=== PATIENT | female | born 1980 | race Caucasian/White ===

== ENCOUNTER 2018-06-27 12:32 | Emergency (ER) | payer BC, SELFPAY ==
[2018-06-27 12:39] VITALS: BP 133/93; PULSE 82; RESP 15; TEMP 36.8; O2SAT 99; BMI 21.4
--- NOTE | 2018-06-27 13:06 | DI.RAD.S_ITS ---
PROCEDURE: XR CHEST 2V INDICATIONS: SHORTNESS OF BREATH TECHNIQUE: 2 views of the chest were acquired. COMPARISON: [facility], CHEST 2 VIEW, 09/07/2017, 16:35. [facility], CHEST 2 VIEW, 06/11/2016, 0:55. FINDINGS: Surgical changes and devices: None. Lungs and pleura: No pleural effusions or pneumothorax. Lungs are clear. Mediastinum: Mediastinal contours are normal. Heart size is normal. Bones and chest wall: No suspicious bony abnormalities. Soft tissues appear unremarkable. IMPRESSION: Normal for age, source of current symptoms is not seen. Dictated by: Samir Dunn M.D. on 06/27/2018 at 13:35 Approved by: Samir Dunn M.D. on 06/27/2018 at 13:35
[2018-06-27 13:15] VITALS: PULSE 70; RESP 17; O2SAT 98
[2018-06-27] MEDS: ALBUTEROL/IPRATROPIUM 3 ML AMPUL INH (13:15)
[2018-06-27] MEDS: SODIUM CHLORIDE 0.9% 1,000 ML 1000 ML IV (13:38)
[2018-06-27 13:42] LABS: Add Manual Diff / Slide Review NO; Basophils Percent Auto 1.2 % (0-2); Eosinophils Percent Auto 1.6 % (2-4); Hematocrit 41.7 % (36-46); Hemoglobin 14.3 g/dL (12.0-16.0); Lymphocytes Percent Auto 39.6 % (25-40); Mean Corpuscular HGB Conc 34.3 % (30-36); Mean Corpuscular Hemoglobin 29.8 PG (26-34); Mean Corpuscular Volume 86.8 fL (80-100); Neutrophils Absolute Auto 3400 /uL (3000-5900); Neutrophils Percent Auto 48.6 % (50-75); Platelet Count 302 X10^3/uL (150-400); Red Cell Distribution Width 13.3 % (11.6-14.8)
--- NOTE | 2018-06-27 13:46 | ED_ITS ---
HPI - Weakness General Chief complaint: Weakness Stated complaint: states extreme fatigue, nausea, hands and feet num Time Seen by Provider: 06/27/18 12:55 Source: patient Mode of arrival: ambulatory Limitations: no limitations History of Present Illness HPI Narrative: 37-year-old female is a daily smoker and presents with multiple complaints over the past week. She has had runny nose and sore throat as well as cough with wheezing. She has had nausea and decreased appetite and therefore has been eating and drinking less. She has had gradually worsening headaches and now feels fatigued. She feels dizzy when standing and improves with rest. She denies any fever but has had chills. She has been exposed to multiple sick people though nobody with symptoms as bad as her. She recently moved across town and has been under significant stress MD Complaint: generalized weakness Onset (ago): day(s) Duration: constant Location: generalized Migration: none Severity: moderate Quality: tingling Relieving factors: none Exacerbating factors: none Associated symptoms: fever/chills, headaches, loss of appetite, nausea/vomiting and shortness of breath Related Data Home Medications Medication Instructions Recorded Confirmed bupropion HCl [Wellbutrin SR] 150 mg PO BID #0 09/06/17 tizanidine [Zanaflex] 2 mg PO TID PRN #0 09/06/17 albuterol sulfate [Ventolin HFA] #0 09/07/17 PNV,calcium [id number] acid 1 tab PO DAILY 06/27/18 06/27/18 [PrePlus] albuterol sulfate 1 dose INHALATION DIRECTED 06/27/18 06/27/18 buspirone 06/27/18 gabapentin 06/27/18 sertraline 50 mg PO DAILY 06/27/18 06/27/18 varenicline [Chantix Continuing 06/27/18 Month Box] Previous Rx's Medication Instructions Recorded metronidazole [Metrogel Vaginal] 1 appl VAGINAL HS #70 gm 10/22/17 omeprazole 20 mg PO QDAY@0600 #30 cap 12/27/17 letrozole [Femara] 2.5 mg PO QDAY #5 tab 12/28/17 Allergies Allergy/AdvReac Type Severity Reaction Status Date / Time latex [LATEX] Allergy Unknown Verified 06/27/18 12:39 Review of Systems Review of Systems All systems reviewed & are unremarkable except as noted in HPI and below Constitutional Reports chills, Reports fever(s), Denies lethargy and Reports weakness Eyes Denies change in vision, Denies eye discharge, Denies irritation and Denies loss of vision ENT Ears, Nose, Mouth, and Throat: Denies change in voice, Denies neck pain and Denies sore throat Cardiovascular Denies chest pain, Denies irregular heart rhythm, Denies lightheadedness, Denies palpitations, Denies dyspnea, Denies dyspnea on exertion and Denies orthopnea Respiratory Denies cough, Denies dyspnea, Denies dyspnea on exertion and Denies wheezing Gastrointestinal Gastrointestinal: Denies abdominal pain, Denies change in bowel habits, Denies diarrhea, Denies nausea and Denies vomiting Genitourinary Denies hematuria, Denies flank pain, Denies urinary incontinence and Denies urinary urgency Musculoskeletal Denies neck pain Integumentary/Breasts Denies pruritus, Denies erythema, Denies rash and Denies wounds Neurologic Denies confusion, Denies loss of vision and Reports weakness Psychiatric Denies anxiety, Denies confusion, Denies depression, Denies homicidal ideation and Denies suicidal ideation Endocrine Denies palpitations Hematologic/Lymphatic Denies easy bruising Allergic/Immunologic Denies wheezing [facility] Social History Smoking Status: Current every day smoker Exam Narrative Exam Narrative: GENERAL: This is a well-nourished, well-developed patient, in mild distress. tearful and anxious HEAD: Atraumatic. Normocephalic. No temporal or scalp tenderness. EYES: Pupils equal round and reactive. Extraocular motions intact. No scleral icterus. No injection or drainage. ENT: Nose without bleeding, purulent drainage or septal hematoma. Throat without erythema, tonsillar hypertrophy or exudate. Uvula midline. Airway patent. NECK: Trachea midline. No JVD or lymphadenopathy. Supple, nontender, no meningeal signs. CARDIOVASCULAR: Regular rate and rhythm without murmurs, gallops, or rubs. RESPIRATORY: mild expiratory wheeze bilaterally. No rales or rhonchi GASTROINTESTINAL: Abdomen soft, non-tender, nondistended. No hepato-splenomegaly , or palpable masses. No guarding. EXTREMITIES: No clubbing, cyanosis, or edema. No joint tenderness, effusion, or edema noted. BACK: Nontender without deformity or crepitance. No flank tenderness. NEURO: AOx3. SKIN: No rash or erythema. Initial Vital Signs Initial Vital Signs: Vital Signs Temperature 98.2 F 06/27/18 12:39 Pulse Rate 82 06/27/18 12:39 Respiratory Rate 15 06/27/18 12:39 Blood Pressure 133/93 H 06/27/18 12:39 Pulse Oximetry 99 06/27/18 12:39 Course Orders Ordered: ED Orders 06/27/18 13:06 XR chest 2V Stat 06/27/18 13:36 Basic Metabolic Panel Stat Complete Blood Count AUTO DIFF Stat Discontinued Medications Albuterol/Ipratropium (Duoneb) 3 ml INH NOW ONE Stop: 06/27/18 13:06 Last Admin: 06/27/18 13:15 Dose: 3 ml Sodium Chloride (Normal Saline 0.9%) 1,000 mls @ 1,000 mls/hr IV BOLUS ONE Stop: 06/27/18 14:04 Last Infusion: 06/27/18 15:17 Dose: 0 mls/hr Admin: 06/27/18 13:38 Dose: 1,000 mls/hr Ketorolac Tromethamine (Toradol) 15 mg IV NOW ONE Stop: 06/27/18 13:06 Last Admin: 06/27/18 13:48 Dose: 15 mg Metoclopramide HCl (Reglan) 10 mg IV NOW ONE Stop: 06/27/18 13:06 Last Admin: 06/27/18 13:48 Dose: 10 mg Reevaluation(s) Reevaluation #1: patient is feeling notable improvement in both headache and respiratory problems after above-stated therapies. She does not feel dizzy or lightheaded at this point time either Vital Signs - 8 hr 06/27/18 12:39 06/27/18 13:15 06/27/18 14:34 Temperature 98.2 F Pulse Rate 82 70 61 Respiratory Rate 15 17 15 Blood Pressure 133/93 H Blood Pressure [Right Arm] 103/65 Pulse Oximetry 99 98 96 06/27/18 15:17 Temperature Pulse Rate 62 Respiratory Rate 13 Blood Pressure 102/66 Blood Pressure [Right Arm] Pulse Oximetry 100 MDM - Weakness Lab Data Result diagrams: 06/27/18 13:36 06/27/18 13:36 Lab Results 06/27/18 06/27/18 Range/Units 13:36 13:36 WBC 7.0 (4.5-11.0) X10^3/uL RBC 4.80 (4.0-5.2) X10^6/uL Hgb 14.3 (12.0-16.0) g/dL Hct 41.7 (36-46) % MCV 86.8 (80-100) fL MCH 29.8 (26-34) PG MCHC 34.3 (30-36) % RDW 13.3 (11.6-14.8) % Plt Count 302 (150-400) X10^3/uL Neut % (Auto) 48.6 L (50-75) % Lymph % (Auto) 39.6 (25-40) % [place] % (Auto) 9.0 (3-14) % Eos % (Auto) 1.6 L (2-4) % Baso % (Auto) 1.2 (0-2) % Neut # (Auto) 3400 (6384-0468) /uL Sodium 144 (137-145) mmol/L Potassium 4.0 (3.4-5.1) mmol/L Chloride 106 (98-107) mmol/L Carbon Dioxide 24 (22-32) mmol/L BUN 10 (7-17) mg/dL Creatinine 0.60 (0.52-1.04) mg/dL Estimated GFR > 60.0 (>60) mL/min BUN/Creatinine Ratio 16.7 (6-22) Glucose 92 (70-100) mg/dL Calcium 10.0 (8.4-10.2) mg/dL Point of Care Testing Test Results Negative Urine Dip Bedside Urine Glucose Negative Bedside Urine Bilirubin - Negative Bedside Urine Ketone - Negative Urine Specific [place] 1.010 Bedside Urine Occult Blood - Negative Bedside Urine pH 7.0 Bedside Urine Protein - Negative Bedside Urine Urobilinogen - Negative Bedside Urine Nitrite - Negative Bedside Urine Leukocytes - Negative Esterase Discharge Plan Departure Patient Disposition: Home Clinical Impression: Bronchitis, Headache, Acute dehydration Discharge Date/Time: 06/27/18 15:18 Interventions: ED Discharge Assessment Last Done: 06/27/18 15:17 Prescriptions: No Action bupropion HCl [Wellbutrin SR] 150 MG tablet extended release 12 hr 150 mg PO BID Qty: 0 RF: 0 tizanidine [Zanaflex] 2 MG capsule 2 mg PO TID PRNQty: 0 RF: 0 albuterol sulfate [Ventolin HFA] 90 MCG/PUFF HFA aerosol inhaler Qty: 0 RF: 0 metronidazole [Metrogel Vaginal] 0.75 % gel 1 appl Vaginal HS Qty: 70 RF: 0 omeprazole 20 mg capsule,delayed release(DR/EC) 20 mg PO QDAY@0600 Qty: 30 RF: 6 letrozole [Femara] 2.5 mg tablet 2.5 mg PO QDAY Qty: 5 RF: 3 buspirone 5 mg tablet RF: 0 albuterol sulfate 2.5 mg /3 mL (0.083 %) solution for nebulization 1 dose Inhalation DIRECTED RF: 0 gabapentin 100 mg capsule RF: 0 sertraline 50 mg tablet 50 mg PO DAILY RF: 0 varenicline [Chantix Continuing Month Box] 1 mg tablet RF: 0 PNV,calcium [id number] acid [PrePlus] 27 mg iron- 1 mg tablet 1 tab PO DAILY RF: 0 Referrals: Brenda St PA-C [Primary Care Provider] - Stand Alone Forms: Work/School Restrictions
[2018-06-27] MEDS: METOCLOPRAMIDE 10 MG/2 ML INJ IV (13:48)
[2018-06-27] MEDS: KETOROLAC 60 MG/2 ML VIAL 15 MG IV (13:48)
[2018-06-27 13:52] LABS: BUN Creatinine Ratio 16.7 (6-22); Blood Urea Nitrogen 10 mg/dL (7-17); Carbon Dioxide 24 mmol/L (22-32); Chloride 106 mmol/L (98-107); Estimated Glomerular Filt Rate > 60.0 mL/min (>60); Glucose 92 mg/dL (70-100); HEMOLYSIS 19 (0-50); Sodium 144 mmol/L (137-145)
[2018-06-27 14:34] VITALS: BP 103/65; PULSE 61; RESP 15; O2SAT 96
[2018-06-27 15:17] VITALS: BP 102/66; PULSE 62; RESP 13; O2SAT 100
== END 2018-06-27 15:18 | disposition home or self-care (01) ==
PROVIDERS: Emergency Provider Emergency Medicine; Family Provider Physician Assistant; PCP Physician Assistant
DX: J40 Bronchitis, not specified as acute or chronic (principal); E86.0 Dehydration; R51 Headache
CPT/HCPCS: 36591; 71046; 80048; 81003; 81025; 85025; 94640; 96361; 96374; 96375; 99283; 99284; J1885; J2765

== ENCOUNTER 2019-01-19 13:08 | Emergency (ER) | payer BC, SELFPAY ==
--- NOTE | 2019-01-19 13:09 | ED.ABDPAIN ---
HPI - Abdominal Pain <Annamaria Martel PA-C - Last Filed: 01/19/19 15:33> General Chief Complaint: Abdominal Pain Stated Complaint: ABD PAIN IN LOWER RIGHT Time Seen by Provider: 01/19/19 13:09 Source: patient Mode of arrival: ambulatory Limitations: no limitations History of Present Illness HPI narrative: This 38-year-old female comes to ED secondary to onset of right lower quadrant pain a few hours ago. She states that the pain is constant, got a little bit better with warm shower, minimally worse with movement or trying to straighten up. She states that she has had severe nausea with this but has not had vomiting. She states she has some heartburn sensation around her mid abdomen. She states that she did have 1 episode of dysuria and has had some urinary frequency for the last few days, a little bit of urgency today. No hematuria. She states that she had a normal bowel movement yesterday, none today. She states that she does not have any chest pain, dyspnea, extremity pain or swelling. She denies any rash or known exposures. She states that she felt some chills and sweats with onset of pain but has not had any fever at home and was feeling well yesterday. She states that she felt like she had some gas and bloating sensation earlier prior to onset of pain. Related Data Home Medications Medication Instructions Recorded Confirmed bupropion HCl [Wellbutrin SR] 150 mg PO BID #0 09/06/17 tizanidine [Zanaflex] 2 mg PO TID PRN #0 09/06/17 albuterol sulfate [Ventolin HFA] #0 09/07/17 PNV,calcium [id number] acid 1 tab PO DAILY 06/27/18 06/27/18 [PrePlus] albuterol sulfate 1 dose INHALATION DIRECTED 06/27/18 06/27/18 buspirone 06/27/18 gabapentin 06/27/18 sertraline 50 mg PO DAILY 06/27/18 06/27/18 varenicline [Chantix Continuing 06/27/18 Month Box] Previous Rx's Medication Instructions Recorded metronidazole [Metrogel Vaginal] 1 appl VAGINAL HS #70 gm 10/22/17 omeprazole 20 mg PO QDAY@0600 #30 cap 12/27/17 letrozole [Femara] 2.5 mg PO QDAY #5 tab 05/15/18 prednisone 40 mg PO DAILY #10 tab 01/19/19 tramadol 50 mg PO Q4-6H PRN #10 tab 01/19/19 Allergies Allergy/AdvReac Type Severity Reaction Status Date / Time latex [LATEX] Allergy Unknown Verified 06/27/18 12:39 Review of Systems <Annamaria Martel PA-C - Last Filed: 01/19/19 15:33> Review of Systems ROS Unobtainable: All systems reviewed & are unremarkable except as noted in HPI and below PFSH <Annamaria Martel PA-C - Last Filed: 01/19/19 15:33> Medical History (Updated 01/19/19 @ 15:30 by Annamaria Martel PA-C) Dystonia (Chronic) Migraine (Chronic) Asthma (Chronic) COPD (chronic obstructive pulmonary disease) (Chronic) Surgical History (Updated 01/19/19 @ 13:27 by Annamaria Martel PA-C) Status post tonsillectomy and adenoidectomy (Resolved) Social History (Updated 01/19/19 @ 13:27 by Annamaria Martel PA-C) Smoking Status: Current every day smoker Social History (Updated 01/19/19 @ 13:27 by Annamaria Martel PA-C) Smoking Status: Current every day smoker Comment: No ETOH, THC/CBD for dystonia Exam <Annamaria Martel PA-C - Last Filed: 01/19/19 15:33> Narrative Exam Narrative: GENERAL APPEARANCE: Patient bleeding on her right side with spine flexed, appears uncomfortable, in NAD HEENT: PERRL, EOMI, no scleral icterus, conjunctivae pink, normal oropharynx NECK: Supple, no masses LUNGS: Clear to auscultation bilaterally, coarse breath sounds. HEART: Rate and rhythm regular, normal S1 and S2, no S3 or S4. ABDOMEN: Soft, nondistended, hypoactive bowel sounds present x 4 quadrants, no masses palpable, no hepatosplenomegaly. Tender from the midline to right lower quadrants with some lower quadrant rebound. No CVAT EXTREMITIES: No edema, no cyanosis, no calf tenderness DERMATOLOGIC: No jaundice or exanthem NEUROLOGIC: Alert and oriented with normal speech and coordination Initial Vital Signs Initial Vital Signs: Vital Signs Temperature 97.7 F 01/19/19 13:11 Pulse Rate 91 H 01/19/19 13:11 Respiratory Rate 19 01/19/19 13:11 Blood Pressure 145/72 H 01/19/19 13:11 Pulse Oximetry 100 01/19/19 13:11 <Matilde Felipe DO - Last Filed: 01/19/19 16:04> Initial Vital Signs Initial Vital Signs: Vital Signs Temperature 97.7 F 01/19/19 13:11 Pulse Rate 91 H 01/19/19 13:11 Respiratory Rate 19 01/19/19 13:11 Blood Pressure 145/72 H 01/19/19 13:11 Pulse Oximetry 100 01/19/19 13:11 Course <Annamaria Martel PA-C - Last Filed: 01/19/19 15:33> Additional Information: Patient is afebrile, states in retrospect she has been feeling somewhat more off and fatigued for a few days, which she initially attributed to her Botox wearing off. Reports nausea resolved, pain improved but not fully resolved with Toradol. Reviewed lab and CT findings, given her lack of diarrhea, etc, this is a possible inflammatory colitis. Offered trial of prednisone which she would like to try as she has taken that for asthma in the past without problems. Discussed importance of follow-up and may need referral for colonoscopy and she will call her PCP and remain off of work tomorrow. She agreed to return if acutely worsening symptoms or new symptoms such as profuse vomiting or fever. She will continue antinausea med that she has at home as well as tramadol, which she also takes at home as needed, as needed Orders Ordered: ED Orders 01/19/19 13:20 CT abdomen pelvis w con Stat 01/19/19 13:30 Complete Blood Count AUTO DIFF Stat Comprehensive Metabolic Panel Stat Lipase Stat Discontinued Medications Acetaminophen (Tylenol) 650 mg PO NOW ONE Stop: 01/19/19 14:48 Last Admin: 01/19/19 14:53 Dose: 650 mg Sodium Chloride (Normal Saline 0.9%) 500 mls @ 1,000 mls/hr IV BOLUS ONE Stop: 01/19/19 13:49 Last Admin: 01/19/19 13:43 Dose: Not Given Sodium Chloride (Normal Saline 0.9%) 1,000 mls @ 1,000 mls/hr IV BOLUS ONE Stop: 01/19/19 14:43 Last Infusion: 01/19/19 14:56 Dose: 0 mls/hr Admin: 01/19/19 13:44 Dose: 1,000 mls/hr Ketorolac Tromethamine (Toradol) 30 mg IV NOW ONE Stop: 01/19/19 13:21 Last Admin: 01/19/19 13:36 Dose: 30 mg Ondansetron HCl (Zofran) 4 mg IV NOW ONE Stop: 01/19/19 13:21 Last Admin: 01/19/19 13:36 Dose: 4 mg Pantoprazole Sodium (Protonix) 40 mg IV NOW ONE Stop: 01/19/19 13:21 Last Admin: 01/19/19 13:36 Dose: 40 mg Tramadol HCl (Ultram) 50 mg PO NOW ONE Stop: 01/19/19 14:48 Last Admin: 01/19/19 14:53 Dose: 50 mg Vital Signs - 8 hr 01/19/19 13:11 01/19/19 15:10 Temperature 97.7 F Pulse Rate 91 H 70 Respiratory Rate 19 17 Blood Pressure 145/72 H Blood Pressure [Right Arm] 101/57 L Pulse Oximetry 100 98 <Matilde Felipe, - Last Filed: 01/19/19 16:04> Orders Ordered: ED Orders 01/19/19 13:20 CT abdomen pelvis w con Stat 01/19/19 13:30 Complete Blood Count AUTO DIFF Stat Comprehensive Metabolic Panel Stat Lipase Stat Discontinued Medications Acetaminophen (Tylenol) 650 mg PO NOW ONE Stop: 01/19/19 14:48 Last Admin: 01/19/19 14:53 Dose: 650 mg Sodium Chloride (Normal Saline 0.9%) 500 mls @ 1,000 mls/hr IV BOLUS ONE Stop: 01/19/19 13:49 Last Admin: 01/19/19 13:43 Dose: Not Given Sodium Chloride (Normal Saline 0.9%) 1,000 mls @ 1,000 mls/hr IV BOLUS ONE Stop: 01/19/19 14:43 Last Infusion: 01/19/19 14:56 Dose: 0 mls/hr Admin: 01/19/19 13:44 Dose: 1,000 mls/hr Ketorolac Tromethamine (Toradol) 30 mg IV NOW ONE Stop: 01/19/19 13:21 Last Admin: 01/19/19 13:36 Dose: 30 mg Ondansetron HCl (Zofran) 4 mg IV NOW ONE Stop: 01/19/19 13:21 Last Admin: 01/19/19 13:36 Dose: 4 mg Pantoprazole Sodium (Protonix) 40 mg IV NOW ONE Stop: 01/19/19 13:21 Last Admin: 01/19/19 13:36 Dose: 40 mg Tramadol HCl (Ultram) 50 mg PO NOW ONE Stop: 01/19/19 14:48 Last Admin: 01/19/19 14:53 Dose: 50 mg Vital Signs - 8 hr 01/19/19 13:11 01/19/19 15:10 Temperature 97.7 F Pulse Rate 91 H 70 Respiratory Rate 19 17 Blood Pressure 145/72 H Blood Pressure [Right Arm] 101/57 L Pulse Oximetry 100 98 MDM - Abdominal Pain <Annamaria Martel PA-C - Last Filed: 01/19/19 15:33> Lab Data Result diagrams: 01/19/19 13:30 01/19/19 13:30 Lab Results 01/19/19 01/19/19 Range/Units 13:30 13:30 WBC 7.8 (4.5-11.0) X10^3/uL RBC 4.65 (4.0-5.2) X10^6/uL Hgb 13.8 (12.0-16.0) g/dL Hct 40.5 (36-46) % MCV 87.1 (80-100) fL MCH 29.7 (26-34) PG MCHC 34.1 (30-36) % RDW 13.5 (11.6-14.8) % Plt Count 322 (150-400) X10^3/uL Neut % (Auto) 51.0 (50-75) % Lymph % (Auto) 37.7 (25-40) % [place] % (Auto) 8.6 (3-14) % Eos % (Auto) 2.2 (2-4) % Baso % (Auto) 0.5 (0-2) % Neut # (Auto) 4000 (0878-3319) /uL Lymph # (Auto) 2900 (9501-1496) /uL [place] # (Auto) 700 (0-900) /uL Eos # (Auto) 200 (0-450) /uL Baso # (Auto) 0 (0-100) /uL Sodium 140 (137-145) mmol/L Potassium 4.3 (3.4-5.1) mmol/L Chloride 102 (98-107) mmol/L Carbon Dioxide 27 (22-32) mmol/L BUN 9 (7-17) mg/dL Creatinine 0.70 (0.52-1.04) mg/dL Estimated GFR > 60.0 (>60) mL/min BUN/Creatinine Ratio 12.9 (6-22) Glucose 81 (70-100) mg/dL Calcium 10.0 (8.4-10.2) mg/dL Total Bilirubin 0.5 (0.2-1.3) mg/dL AST 18 (14-36) IU/L ALT 28 (9-52) IU/L Alkaline Phosphatase 46 (38-126) U/L Total Protein 8.0 (6.3-8.2) g/dL Albumin 5.0 (3.5-5.0) g/dL Globulin 3.0 (1.7-4.1) g/dL Albumin/Globulin Ratio 1.7 (1.0-2.8) Lipase 37 (23-300) U/L Point of care testing: Point of Care Testing Test Results Negative Urine Dip Bedside Urine Glucose Negative Bedside Urine Bilirubin - Negative Bedside Urine Ketone - Negative Urine Specific Orange 1.015 Bedside Urine Occult Blood - Negative Bedside Urine pH 7.5 Bedside Urine Protein - Negative Bedside Urine Urobilinogen - Negative Bedside Urine Nitrite - Negative Bedside Urine Leukocytes - Negative Esterase <Matilde Felipe, DO - Last Filed: 01/19/19 16:04> Lab Data Attestation: I reviewed the patient's lab results. Lab Results 01/19/19 01/19/19 Range/Units 13:30 13:30 WBC 7.8 (4.5-11.0) X10^3/uL RBC 4.65 (4.0-5.2) X10^6/uL Hgb 13.8 (12.0-16.0) g/dL Hct 40.5 (36-46) % MCV 87.1 (80-100) fL MCH 29.7 (26-34) PG MCHC 34.1 (30-36) % RDW 13.5 (11.6-14.8) % Plt Count 322 (150-400) X10^3/uL Neut % (Auto) 51.0 (50-75) % Lymph % (Auto) 37.7 (25-40) % [place] % (Auto) 8.6 (3-14) % Eos % (Auto) 2.2 (2-4) % Baso % (Auto) 0.5 (0-2) % Neut # (Auto) 4000 (3663-9473) /uL Lymph # (Auto) 2900 (9922-6224) /uL [place] # (Auto) 700 (0-900) /uL Eos # (Auto) 200 (0-450) /uL Baso # (Auto) 0 (0-100) /uL Sodium 140 (137-145) mmol/L Potassium 4.3 (3.4-5.1) mmol/L Chloride 102 (98-107) mmol/L Carbon Dioxide 27 (22-32) mmol/L BUN 9 (7-17) mg/dL Creatinine 0.70 (0.52-1.04) mg/dL Estimated GFR > 60.0 (>60) mL/min BUN/Creatinine Ratio 12.9 (6-22) Glucose 81 (70-100) mg/dL Calcium 10.0 (8.4-10.2) mg/dL Total Bilirubin 0.5 (0.2-1.3) mg/dL AST 18 (14-36) IU/L ALT 28 (9-52) IU/L Alkaline Phosphatase 46 (38-126) U/L Total Protein 8.0 (6.3-8.2) g/dL Albumin 5.0 (3.5-5.0) g/dL Globulin 3.0 (1.7-4.1) g/dL Albumin/Globulin Ratio 1.7 (1.0-2.8) Lipase 37 (23-300) U/L Point of care testing: Point of Care Testing Test Results Negative Urine Dip Bedside Urine Glucose Negative Bedside Urine Bilirubin - Negative Bedside Urine Ketone - Negative Urine Specific Orange 1.015 Bedside Urine Occult Blood - Negative Bedside Urine pH 7.5 Bedside Urine Protein - Negative Bedside Urine Urobilinogen - Negative Bedside Urine Nitrite - Negative Bedside Urine Leukocytes - Negative Esterase Imaging Data CT scan - abdomen: Radiologist's impression: [address] [address] [address] Scan Report Signed Patient: Evette Crowley [facility]#: [id number] : 1980Acct:[id number] Age/Sex: 38 / FDate of Service: 01/19/19 Loc: ED Accession Number: [id number] Procedure: CT abdomen pelvis w con Ordering Provider: Annamaria Martel P.A-C PROCEDURE: CT ABDOMEN PELVIS W CON INDICATIONS: right sided lower abdominal pain TECHNIQUE: After the administration of intravenous contrast, 5 mm thick sections acquired from the diaphragm to the symphysis. 5 mm coronal and sagittal reformats were acquired. For radiation dose reduction, the following was used: automated exposure control, adjustment of mA and/or kV according to patient size. COMPARISON: None. FINDINGS: Image quality: Excellent. ABDOMEN: Lung bases: Lung bases are clear. Heart size is normal. Solid organs: Liver is normal in size and enhancement. Gallbladder is within normal limits. Biliary system is non dilated. Pancreas enhances normally. Spleen is normal in size and enhancement. No adrenal nodules. Kidneys demonstrate normal size and enhancement, without hydronephrosis. Peritoneum and bowel: Mild fluid distention of the small bowel loops are noted throughout abdomen. There is diffuse colonic wall thickening and edema with mild pericolonic fat stranding. Mild distal ileal wall thickening is also seen. No free fluid or free air. Appendix is not definitively identified. No secondary signs of acute appendicitis is seen. Nodes and vessels: There is no retroperitoneal lymphadenopathy by size criteria. Mildly prominent right lower quadrant mesenteric lymph nodes are seen measures up to 6 mm in short axis diameter. Aorta and inferior vena cava are normal in size. Miscellaneous: No ventral hernias. PELVIS: Genitourinary: Bladder wall thickness is normal. Miscellaneous: No inguinal hernias or adenopathy. Bones: No suspicious bony lesions. No vertebral body compression fractures. IMPRESSION: 1. Diffuse colonic wall thickening and terminal ileal wall thickening suggestive of infectious or inflammatory ileocolitis. Subcentimeter lymph nodes in right lower quadrant mesentery and likely represent reactive inflammatory lymph nodes. 2. No bowel obstruction. No free fluid or free air. 3. Appendix is not definitively identified. No secondary CT signs of acute appendicitis. Dictated by: Compa Pathak M.D. on 01/19/2019 at 14:27 Approved by: Compa Pathak M.D. on 01/19/2019 at 14:30 Discharge Plan Departure Patient Disposition: Home Clinical Impression: Colitis Discharge Date/Time: 01/19/19 15:17 Interventions: ED Discharge Assessment Last Done: 01/19/19 15:16 Instructions: DI for Abdominal Pain-Adult, DI for Colitis Activity Restrictions/Additional Instructions: Your lab work was normal today, however your scan shows that you have some inflammation in your colon and intestines, and some inflamed lymph nodes as well. We most often see this with diarrhea and food poisoning type symptoms, however since you have not had any bowel symptoms this is less likely. It is possible that this is due to an other inflammatory process, so after talking have decided to try prednisone, which you have taken before for asthma, to see if this helps your pain and inflammation. Please start the prednisone today ([facility] as soon as you pick it up, and call your PCP this afternoon, preferably to arrange follow-up for tomorrow. You can take your tramadol as needed for pain, take with Tylenol. Do not take NSAIDs with the steroids. You can use the antinausea medicine you already have at home as needed. As we talked about, you should return to the ED if you have acutely worsening symptoms such as more severe pain, or new symptoms such as high fever or profuse vomiting Prescriptions: New prednisone 20 mg tablet 40 mg PO DAILY Qty: 10 RF: 0 tramadol 50 mg tablet 50 mg PO Q4-6H PRN (Reason: acute abdominal pain) Qty: 10 RF: 0 No Action bupropion HCl [Wellbutrin SR] 150 MG tablet extended release 12 hr 150 mg PO BID Qty: 0 RF: 0 tizanidine [Zanaflex] 2 MG capsule 2 mg PO TID PRNQty: 0 RF: 0 albuterol sulfate [Ventolin HFA] 90 MCG/PUFF HFA aerosol inhaler Qty: 0 RF: 0 metronidazole [Metrogel Vaginal] 0.75 % gel 1 appl Vaginal HS Qty: 70 RF: 0 omeprazole 20 mg capsule,delayed release(DR/EC) 20 mg PO QDAY@0600 Qty: 30 RF: 6 letrozole [Femara] 2.5 mg tablet 2.5 mg PO QDAY Qty: 5 RF: 3 buspirone 5 mg tablet RF: 0 albuterol sulfate 2.5 mg /3 mL (0.083 %) solution for nebulization 1 dose Inhalation DIRECTED RF: 0 gabapentin 100 mg capsule RF: 0 sertraline 50 mg tablet 50 mg PO DAILY RF: 0 varenicline [Chantix Continuing Month Box] 1 mg tablet RF: 0 PNV,calcium [id number] acid [PrePlus] 27 mg iron- 1 mg tablet 1 tab PO DAILY RF: 0 Referrals: Cyn Suh [Other] Stand Alone Forms: Work Release Note <Matilde Felipe DO - Last Filed: 01/19/19 16:04> Cosign ED Attending Cosignature Attestation: I was immediately available in the department for consultation. This documentation has been reviewed and I agree with assessment and plan. Supervised by Matilde Felipe DO
[2019-01-19 13:11] VITALS: BP 145/72; PULSE 91; RESP 19; TEMP 36.5; O2SAT 100; BMI 21.8
--- NOTE | 2019-01-19 13:20 | DI.CT.S_ITS ---
PROCEDURE: CT ABDOMEN PELVIS W CON INDICATIONS: right sided lower abdominal pain TECHNIQUE: After the administration of intravenous contrast, 5 mm thick sections acquired from the diaphragm to the symphysis. 5 mm coronal and sagittal reformats were acquired. For radiation dose reduction, the following was used: automated exposure control, adjustment of mA and/or kV according to patient size. COMPARISON: None. FINDINGS: Image quality: Excellent. ABDOMEN: Lung bases: Lung bases are clear. Heart size is normal. Solid organs: Liver is normal in size and enhancement. Gallbladder is within normal limits. Biliary system is non dilated. Pancreas enhances normally. Spleen is normal in size and enhancement. No adrenal nodules. Kidneys demonstrate normal size and enhancement, without hydronephrosis. Peritoneum and bowel: Mild fluid distention of the small bowel loops are noted throughout abdomen. There is diffuse colonic wall thickening and edema with mild pericolonic fat stranding. Mild distal ileal wall thickening is also seen. No free fluid or free air. Appendix is not definitively identified. No secondary signs of acute appendicitis is seen. Nodes and vessels: There is no retroperitoneal lymphadenopathy by size criteria. Mildly prominent right lower quadrant mesenteric lymph nodes are seen measures up to 6 mm in short axis diameter. Aorta and inferior vena cava are normal in size. Miscellaneous: No ventral hernias. PELVIS: Genitourinary: Bladder wall thickness is normal. Miscellaneous: No inguinal hernias or adenopathy. Bones: No suspicious bony lesions. No vertebral body compression fractures. IMPRESSION: 1. Diffuse colonic wall thickening and terminal ileal wall thickening suggestive of infectious or inflammatory ileocolitis. Subcentimeter lymph nodes in right lower quadrant mesentery and likely represent reactive inflammatory lymph nodes. 2. No bowel obstruction. No free fluid or free air. 3. Appendix is not definitively identified. No secondary CT signs of acute appendicitis. Dictated by: Compa Pathak M.D. on 01/19/2019 at 14:27 Approved by: Compa Pathak M.D. on 01/19/2019 at 14:30
--- NOTE | 2019-01-19 13:29 | ED_ITS ---
HPI - Abdominal Pain <Annamaria Martel PA-C - Last Filed: 01/19/19 15:33> General Chief Complaint: Abdominal Pain Stated Complaint: ABD PAIN IN LOWER RIGHT Time Seen by Provider: 01/19/19 13:09 Source: patient Mode of arrival: ambulatory Limitations: no limitations History of Present Illness HPI narrative: This 38-year-old female comes to ED secondary to onset of right lower quadrant pain a few hours ago. She states that the pain is constant, got a little bit better with warm shower, minimally worse with movement or trying to straighten up. She states that she has had severe nausea with this but has not had vomiting. She states she has some heartburn sensation around her mid abdom en. She states that she did have 1 episode of dysuria and has had some urinary frequency for the last few days, a little bit of urgency today. No hematuria. She states that she had a normal bowel movement yesterday, none today. She states that she does not have any chest pain, dyspnea, extremity pain or swelling. She denies any rash or known exposures. She states that she felt some chills and sweats with onset of pain but has not had any fever at home and was feeling well yesterday. She states that she felt like she had some gas and bloating sensation earlier prior to onset of pain. Related Data Home Medications Medication Instructions Recorded Confirmed bupropion HCl [Wellbutrin SR] 150 mg PO BID #0 09/06/17 tizanidine [Zanaflex] 2 mg PO TID PRN #0 09/06/17 albuterol sulfate [Ventolin HFA] #0 09/07/17 PNV,calcium [id number] acid 1 tab PO DAILY 06/27/18 06/27/18 [PrePlus] albuterol sulfate 1 dose INHALATION DIRECTED 06/27/18 06/27/18 buspirone 06/27/18 gabapentin 06/27/18 sertraline 50 mg PO DAILY 06/27/18 06/27/18 varenicline [Chantix Continuing 06/27/18 Month Box] Previous Rx's Medication Instructions Recorded metronidazole [Metrogel Vaginal] 1 appl VAGINAL HS #70 gm 10/22/17 omeprazole 20 mg PO QDAY@0600 #30 cap 12/27/17 letrozole [Femara] 2.5 mg PO QDAY #5 tab 12/28/17 prednisone 40 mg PO DAILY #10 tab 01/19/19 tramadol 50 mg PO Q4-6H PRN #10 tab 01/19/19 Allergies Allergy/AdvReac Type Severity Reaction Status Date / Time latex [LATEX] Allergy Unknown Verified 06/27/18 12:39 Review of Systems <Annamaria Martel PA-C - Last Filed: 01/19/19 15:33> Review of Systems ROS Unobtainable: All systems reviewed & are unremarkable except as noted in HPI and below PFSH <Annamaria Martel PA-C - Last Filed: 01/19/19 15:33> Medical History (Updated 01/19/19 @ 15:30 by Annamaria Martel PA-C) Dystonia (Chronic) Migraine (Chronic) Asthma (Chronic) COPD (chronic obstructive pulmonary disease) (Chronic) Surgical History (Updated 01/19/19 @ 13:27 by Annamaria Martel PA-C) Status post tonsillectomy and adenoidectomy (Resolved) Social History (Updated 01/19/19 @ 13:27 by Annamaria Martel PA-C) Smoking Status: Current every day smoker Social History (Updated 01/19/19 @ 13:27 by Annamaria Martel PA-C) Smoking Status: Current every day smoker Comment: No ETOH, THC/CBD for dystonia Exam <Annamaria Martel PA-C - Last Filed: 01/19/19 15:33> Narrative Exam Narrative: GENERAL APPEARANCE: Patient bleeding on her right side with spine flexed, appears uncomfortable, in NAD HEENT: PERRL, EOMI, no scleral icterus, conjunctivae pink, normal oropharynx NECK: Supple, no masses LUNGS: Clear to auscultation bilaterally, coarse breath sounds. HEART: Rate and rhythm regular, normal S1 and S2, no S3 or S4. ABDOMEN: Soft, nondistended, hypoactive bowel sounds present x 4 quadrants, no masses palpable, no hepatosplenomegaly. Tender from the midline to right lower quadrants with some lower quadrant rebound. No CVAT EXTREMITIES: No edema, no cyanosis, no calf tenderness DERMATOLOGIC: No jaundice or exanthem NEUROLOGIC: Alert and oriented with normal speech and coordination Initial Vital Signs Initial Vital Signs: Vital Signs Temperature 97.7 F 01/19/19 13:11 Pulse Rate 91 H 01/19/19 13:11 Respiratory Rate 19 01/19/19 13:11 Blood Pressure 145/72 H 01/19/19 13:11 Pulse Oximetry 100 01/19/19 13:11 <Matilde Felipe DO - Last Filed: 01/19/19 16:04> Initial Vital Signs Initial Vital Signs: Vital Signs Temperature 97.7 F 01/19/19 13:11 Pulse Rate 91 H 01/19/19 13:11 Respiratory Rate 19 01/19/19 13:11 Blood Pressure 145/72 H 01/19/19 13:11 Pulse Oximetry 100 01/19/19 13:11 Course <Annamaria Martel PA-C - Last Filed: 01/19/19 15:33> Additional Information: Patient is afebrile, states in retrospect she has been feeling somewhat more off and fatigued for a few days, which she initially attributed to her Botox wearing off. Reports nausea resolved, pain improved but not fully resolved with Toradol. Reviewed lab and CT findings, given her lack of diarrhea, etc, this is a possible inflammatory colitis. Offered trial of prednisone which she would like to try as she has taken that for asthma in the past without problems. Discussed importance of follow-up and may need referral for colonoscopy and she will call her PCP and remain off of work tomorrow. She agreed to return if acutely worsening symptoms or new symptoms such as profuse vomiting or fever. She will continue antinausea med that she has at home as well as tramadol, which she also takes at home as needed, as needed Orders Ordered: ED Orders 01/19/19 13:20 CT abdomen pelvis w con Stat 01/19/19 13:30 Complete Blood Count AUTO DIFF Stat Comprehensive Metabolic Panel Stat Lipase Stat Discontinued Medications Acetaminophen (Tylenol) 650 mg PO NOW ONE Stop: 01/19/19 14:48 Last Admin: 01/19/19 14:53 Dose: 650 mg Sodium Chloride (Normal Saline 0.9%) 500 mls @ 1,000 mls/hr IV BOLUS ONE Stop: 01/19/19 13:49 Last Admin: 01/19/19 13:43 Dose: Not Given Sodium Chloride (Normal Saline 0.9%) 1,000 mls @ 1,000 mls/hr IV BOLUS ONE Stop: 01/19/19 14:43 Last Infusion: 01/19/19 14:56 Dose: 0 mls/hr Admin: 01/19/19 13:44 Dose: 1,000 mls/hr Ketorolac Tromethamine (Toradol) 30 mg IV NOW ONE Stop: 01/19/19 13:21 Last Admin: 01/19/19 13:36 Dose: 30 mg Ondansetron HCl (Zofran) 4 mg IV NOW ONE Stop: 01/19/19 13:21 Last Admin: 01/19/19 13:36 Dose: 4 mg Pantoprazole Sodium (Protonix) 40 mg IV NOW ONE Stop: 01/19/19 13:21 Last Admin: 01/19/19 13:36 Dose: 40 mg Tramadol HCl (Ultram) 50 mg PO NOW ONE Stop: 01/19/19 14:48 Last Admin: 01/19/19 14:53 Dose: 50 mg Vital Signs - 8 hr 01/19/19 13:11 01/19/19 15:10 Temperature 97.7 F Pulse Rate 91 H 70 Respiratory Rate 19 17 Blood Pressure 145/72 H Blood Pressure [Right Arm] 101/57 L Pulse Oximetry 100 98 <Matilde Felipe, - Last Filed: 01/19/19 16:04> Orders Ordered: ED Orders 01/19/19 13:20 CT abdomen pelvis w con Stat 01/19/19 13:30 Complete Blood Count AUTO DIFF Stat Comprehensive Metabolic Panel Stat Lipase Stat Discontinued Medications Acetaminophen (Tylenol) 650 mg PO NOW ONE Stop: 01/19/19 14:48 Last Admin: 01/19/19 14:53 Dose: 650 mg Sodium Chloride (Normal Saline 0.9%) 500 mls @ 1,000 mls/hr IV BOLUS ONE Stop: 01/19/19 13:49 Last Admin: 01/19/19 13:43 Dose: Not Given Sodium Chloride (Normal Saline 0.9%) 1,000 mls @ 1,000 mls/hr IV BOLUS ONE Stop: 01/19/19 14:43 Last Infusion: 01/19/19 14:56 Dose: 0 mls/hr Admin: 01/19/19 13:44 Dose: 1,000 mls/hr Ketorolac Tromethamine (Toradol) 30 mg IV NOW ONE Stop: 01/19/19 13:21 Last Admin: 01/19/19 13:36 Dose: 30 mg Ondansetron HCl (Zofran) 4 mg IV NOW ONE Stop: 01/19/19 13:21 Last Admin: 01/19/19 13:36 Dose: 4 mg Pantoprazole Sodium (Protonix) 40 mg IV NOW ONE Stop: 01/19/19 13:21 Last Admin: 01/19/19 13:36 Dose: 40 mg Tramadol HCl (Ultram) 50 mg PO NOW ONE Stop: 01/19/19 14:48 Last Admin: 01/19/19 14:53 Dose: 50 mg Vital Signs - 8 hr 01/19/19 13:11 01/19/19 15:10 Temperature 97.7 F Pulse Rate 91 H 70 Respiratory Rate 19 17 Blood Pressure 145/72 H Blood Pressure [Right Arm] 101/57 L Pulse Oximetry 100 98 MDM - Abdominal Pain <Annamaria Martel PA-C - Last Filed: 01/19/19 15:33> Lab Data Result diagrams: 01/19/19 13:30 01/19/19 13:30 Lab Results 01/19/19 01/19/19 Range/Units 13:30 13:30 WBC 7.8 (4.5-11.0) X10^3/uL RBC 4.65 (4.0-5.2) X10^6/uL Hgb 13.8 (12.0-16.0) g/dL Hct 40.5 (36-46) % MCV 87.1 (80-100) fL MCH 29.7 (26-34) PG MCHC 34.1 (30-36) % RDW 13.5 (11.6-14.8) % Plt Count 322 (150-400) X10^3/uL Neut % (Auto) 51.0 (50-75) % Lymph % (Auto) 37.7 (25-40) % Roosevelt % (Auto) 8.6 (3-14) % Eos % (Auto) 2.2 (2-4) % Baso % (Auto) 0.5 (0-2) % Neut # (Auto) 4000 (3184-7210) /uL Lymph # (Auto) 2900 (2786-6670) /uL Roosevelt # (Auto) 700 (0-900) /uL Eos # (Auto) 200 (0-450) /uL Baso # (Auto) 0 (0-100) /uL Sodium 140 (137-145) mmol/L Potassium 4.3 (3.4-5.1) mmol/L Chloride 102 (98-107) mmol/L Carbon Dioxide 27 (22-32) mmol/L BUN 9 (7-17) mg/dL Creatinine 0.70 (0.52-1.04) mg/dL Estimated GFR > 60.0 (>60) mL/min BUN/Creatinine Ratio 12.9 (6-22) Glucose 81 (70-100) mg/dL Calcium 10.0 (8.4-10.2) mg/dL Total Bilirubin 0.5 (0.2-1.3) mg/dL AST 18 (14-36) IU/L ALT 28 (9-52) IU/L Alkaline Phosphatase 46 (38-126) U/L Total Protein 8.0 (6.3-8.2) g/dL Albumin 5.0 (3.5-5.0) g/dL Globulin 3.0 (1.7-4.1) g/dL Albumin/Globulin Ratio 1.7 (1.0-2.8) Lipase 37 (23-300) U/L Point of care testing: Point of Care Testing Test Results Negative Urine Dip Bedside Urine Glucose Negative Bedside Urine Bilirubin - Negative Bedside Urine Ketone - Negative Urine Specific [place] 1.015 Bedside Urine Occult Blood - Negative Bedside Urine pH 7.5 Bedside Urine Protein - Negative Bedside Urine Urobilinogen - Negative Bedside Urine Nitrite - Negative Bedside Urine Leukocytes - Negative Esterase <Matilde Felipe, DO - Last Filed: 01/19/19 16:04> Lab Data Attestation: I reviewed the patient's lab results. Lab Results 01/19/19 01/19/19 Range/Units 13:30 13:30 WBC 7.8 (4.5-11.0) X10^3/uL RBC 4.65 (4.0-5.2) X10^6/uL Hgb 13.8 (12.0-16.0) g/dL Hct 40.5 (36-46) % MCV 87.1 (80-100) fL MCH 29.7 (26-34) PG MCHC 34.1 (30-36) % RDW 13.5 (11.6-14.8) % Plt Count 322 (150-400) X10^3/uL Neut % (Auto) 51.0 (50-75) % Lymph % (Auto) 37.7 (25-40) % Roosevelt % (Auto) 8.6 (3-14) % Eos % (Auto) 2.2 (2-4) % Baso % (Auto) 0.5 (0-2) % Neut # (Auto) 4000 (9103-9164) /uL Lymph # (Auto) 2900 (2537-1883) /uL Roosevelt # (Auto) 700 (0-900) /uL Eos # (Auto) 200 (0-450) /uL Baso # (Auto) 0 (0-100) /uL Sodium 140 (137-145) mmol/L Potassium 4.3 (3.4-5.1) mmol/L Chloride 102 (98-107) mmol/L Carbon Dioxide 27 (22-32) mmol/L BUN 9 (7-17) mg/dL Creatinine 0.70 (0.52-1.04) mg/dL Estimated GFR > 60.0 (>60) mL/min BUN/Creatinine Ratio 12.9 (6-22) Glucose 81 (70-100) mg/dL Calcium 10.0 (8.4-10.2) mg/dL Total Bilirubin 0.5 (0.2-1.3) mg/dL AST 18 (14-36) IU/L ALT 28 (9-52) IU/L Alkaline Phosphatase 46 (38-126) U/L Total Protein 8.0 (6.3-8.2) g/dL Albumin 5.0 (3.5-5.0) g/dL Globulin 3.0 (1.7-4.1) g/dL Albumin/Globulin Ratio 1.7 (1.0-2.8) Lipase 37 (23-300) U/L Point of care testing: Point of Care Testing Test Results Negative Urine Dip Bedside Urine Glucose Negative Bedside Urine Bilirubin - Negative Bedside Urine Ketone - Negative Urine Specific [place] 1.015 Bedside Urine Occult Blood - Negative Bedside Urine pH 7.5 Bedside Urine Protein - Negative Bedside Urine Urobilinogen - Negative Bedside Urine Nitrite - Negative Bedside Urine Leukocytes - Negative Esterase Imaging Data CT scan - abdomen: Radiologist's impression: [address] [place] [address] CT Scan Report Signed Patient: Evette Crowley [facility]#: [id number] : 1980Acct:[id number] Age/Sex: 38 / FDate of Service: 01/19/19 Loc: ED Accession Number: [id number] Procedure: CT abdomen pelvis w con Ordering Provider: Annamaria Martel P.A-C PROCEDURE: CT ABDOMEN PELVIS W CON INDICATIONS: right sided lower abdominal pain TECHNIQUE: After the administration of intravenous contrast, 5 mm thick sections acquired from the diaphragm to the symphysis. 5 mm coronal and sagittal reformats were acquired. For radiation dose reduction, the following was used: automated exposure control, adjustment of mA and/or kV according to patient size. COMPARISON: None. FINDINGS: Image quality: Excellent. ABDOMEN: Lung bases: Lung bases are clear. Heart size is normal. Solid organs: Liver is normal in size and enhancement. Gallbladder is within normal limits. Biliary system is non dilated. Pancreas enhances normally. Spleen is normal in size and enhancement. No adrenal nodules. Kidneys demonstrate normal size and enhancement, without hydronephrosis. Peritoneum and bowel: Mild fluid distention of the small bowel loops are noted throughout abdomen. There is diffuse colonic wall thickening and edema with mild pericolonic fat stranding. Mild distal ileal wall thickening is also seen. No free fluid or free air. Appendix is not definitively identified. No secondary signs of acute appendicitis is seen. Nodes and vessels: There is no retroperitoneal lymphadenopathy by size criteria. Mildly prominent right lower quadrant mesenteric lymph nodes are seen measures up to 6 mm in short axis diameter. Aorta and inferior vena cava are normal in size. Miscellaneous: No ventral hernias. PELVIS: Genitourinary: Bladder wall thickness is normal. Miscellaneous: No inguinal hernias or adenopathy. Bones: No suspicious bony lesions. No vertebral body compression fractures. IMPRESSION: 1. Diffuse colonic wall thickening and terminal ileal wall thickening suggestive of infectious or inflammatory ileocolitis. Subcentimeter lymph nodes in right lower quadrant mesentery and likely represent reactive inflammatory lymph nodes. 2. No bowel obstruction. No free fluid or free air. 3. Appendix is not definitively identified. No secondary CT signs of acute a ppendicitis. Dictated by: Compa Pathak M.D. on 01/19/2019 at 14:27 Approved by: Compa Pathak M.D. on 01/19/2019 at 14:30 Discharge Plan Departure Patient Disposition: Home Clinical Impression: Colitis Discharge Date/Time: 01/19/19 15:17 Interventions: ED Discharge Assessment Last Done: 01/19/19 15:16 Instructions: DI for Abdominal Pain-Adult, DI for Colitis Activity Restrictions/Additional Instructions: Your lab work was normal today, however your scan shows that you have some inflammation in your colon and intestines, and some inflamed lymph nodes as well. We most often see this with diarrhea and food poisoning type symptoms, however since you have not had any bowel symptoms this is less likely. It is possible that this is due to an other inflammatory process, so after talking have decided to try prednisone, which you have taken before for asthma, to see if this helps your pain and inflammation. Please start the prednisone today (I have sent that to [facility] for you) as soon as you pick it up, and call your PCP this afternoon, preferably to arrange follow-up for tomorrow. You can take your tramadol as needed for pain, take with Tylenol. Do not take NSAIDs with the steroids. You can use the antinausea medicine you already have at home as n eeded. As we talked about, you should return to the ED if you have acutely worsening symptoms such as more severe pain, or new symptoms such as high fever or profuse vomiting Prescriptions: New prednisone 20 mg tablet 40 mg PO DAILY Qty: 10 RF: 0 tramadol 50 mg tablet 50 mg PO Q4-6H PRN (Reason: acute abdominal pain) Qty: 10 RF: 0 No Action bupropion HCl [Wellbutrin SR] 150 MG tablet extended release 12 hr 150 mg PO BID Qty: 0 RF: 0 tizanidine [Zanaflex] 2 MG capsule 2 mg PO TID PRNQty: 0 RF: 0 albuterol sulfate [Ventolin HFA] 90 MCG/PUFF HFA aerosol inhaler Qty: 0 RF: 0 metronidazole [Metrogel Vaginal] 0.75 % gel 1 appl Vaginal HS Qty: 70 RF: 0 omeprazole 20 mg capsule,delayed release(DR/EC) 20 mg PO QDAY@0600 Qty: 30 RF: 6 letrozole [Femara] 2.5 mg tablet 2.5 mg PO QDAY Qty: 5 RF: 3 buspirone 5 mg tablet RF: 0 albuterol sulfate 2.5 mg /3 mL (0.083 %) solution for nebulization 1 dose Inhalation DIRECTED RF: 0 gabapentin 100 mg capsule RF: 0 sertraline 50 mg tablet 50 mg PO DAILY RF: 0 varenicline [Chantix Continuing Month Box] 1 mg tablet RF: 0 PNV,calcium 96-hiyn-szcny acid [PrePlus] 27 mg iron- 1 mg tablet 1 tab PO DAILY RF: 0 Referrals: Cyn Suh [Other] Stand Alone Forms: Work Release Note <Matilde Felipe DO - Last Filed: 01/19/19 16:04> Cosign ED Attending Cosignature Attestation: I was immediately available in the department for consultation. This documentation has been reviewed and I agree with assessment and plan. Supervised by Matilde Felipe DO
[2019-01-19 13:34] LABS: Add Manual Diff / Slide Review NO; Basophils Absolute Auto 0 /uL (0-100); Basophils Percent Auto 0.5 % (0-2); Eosinophils Absolute Auto 200 /uL (0-450); Eosinophils Percent Auto 2.2 % (2-4); Hematocrit 40.5 % (36-46); Hemoglobin 13.8 g/dL (12.0-16.0); Lymphocytes Absolute Auto 2900 /uL (1100-4500); Lymphocytes Percent Auto 37.7 % (25-40); Mean Corpuscular HGB Conc 34.1 % (30-36); Mean Corpuscular Hemoglobin 29.7 PG (26-34); Mean Corpuscular Volume 87.1 fL (80-100); Monocytes Absolute Auto 700 /uL (0-900); Monocytes Percent Auto 8.6 % (3-14); Neutrophils Absolute Auto 4000 /uL (1500-7000); Platelet Count 322 X10^3/uL (150-400); Red Blood Cell Count 4.65 X10^6/uL (4.0-5.2); Red Cell Distribution Width 13.5 % (11.6-14.8); White Blood Cell Count 7.8 X10^3/uL (4.5-11.0)
[2019-01-19] MEDS: PANTOPRAZOLE 40 MG VIAL IV (13:36)
[2019-01-19] MEDS: KETOROLAC 60 MG/2 ML VIAL 30 MG IV (13:36)
[2019-01-19] MEDS: ONDANSETRON 4 MG/2 ML INJ IV (13:36)
[2019-01-19] MEDS: SODIUM CHLORIDE 0.9% 1,000 ML 1000 ML IV (13:44)
[2019-01-19 13:45] LABS: Alanine Aminotransferase 28 IU/L (9-52); Albumin Globulin Ratio 1.7 (1.0-2.8); Alkaline Phosphatase 46 U/L (38-126); Aspartate Aminotransferase 18 IU/L (14-36); BUN Creatinine Ratio 12.9 (6-22); Bilirubin Total 0.5 mg/dL (0.2-1.3); Blood Urea Nitrogen 9 mg/dL (7-17); Carbon Dioxide 27 mmol/L (22-32); Chloride 102 mmol/L (98-107); Estimated Glomerular Filt Rate > 60.0 mL/min (>60); Glucose 81 mg/dL (70-100); HEMOLYSIS < 15 (0-50); Lipase 37 U/L (23-300); Potassium 4.3 mmol/L (3.4-5.1); Sodium 140 mmol/L (137-145)
[2019-01-19] MEDS: ACETAMINOPHEN 325 MG TABLET 650 MG PO (14:53)
[2019-01-19] MEDS: TRAMADOL 50 MG TABLET PO (14:53)
[2019-01-19 15:10] VITALS: BP 101/57; PULSE 70; RESP 17; O2SAT 98
== END 2019-01-19 15:17 | disposition home or self-care (01) ==
PROVIDERS: Emergency Provider Internal Medicine
DX: K52.9 Noninfective gastroenteritis and colitis, unspecified (principal)
CPT/HCPCS: 36591; 74177; 80053; 81003; 81025; 83690; 85025; 96361; 96374; 96375; 99283; 99284; C9113; J1885; J2405; Q9967

== ENCOUNTER → 2019-03-10 14:48 | Outpatient (CLI) | payer BC, SELFPAY ==
[2019-03-10 17:10] LABS: Clostridium Difficile Tox PCR Negative for C. diff
== END ==
PROVIDERS: Visit Provider Physician Assistant
DX: R19.7 Diarrhea, unspecified (principal)
CPT/HCPCS: 87045; 87177; 87329; 87493; 87899